=== PATIENT | male | born 1965 | race Caucasian/White ===

== ENCOUNTER 2022-01-04 17:38 | Emergency (ER) | payer MEDICARE, SELFPAY ==
[2022-01-04 18:59] VITALS: BP 124/90; PULSE 57; RESP 18; TEMP 36.9; O2SAT 99; BMI 19.3
--- NOTE | 2022-01-04 19:04 | XR_ITS ---
PROCEDURE INFORMATION: Exam: XR Chest Exam date and time: 01/04/2022 7:05 PM Age: 56 years old Clinical indication: Pain; Other: Generalized; Additional info: Pain/fall TECHNIQUE: Imaging protocol: Radiologic exam of the chest. Views: 2 views. COMPARISON: No relevant prior studies available. FINDINGS: Lungs: No consolidation. Pleural spaces: No pneumothorax. Heart/Mediastinum: No cardiomegaly. Bones/joints: Severe scoliosis. No acute fracture. IMPRESSION: Chronic changes without acute process.
--- NOTE | 2022-01-04 19:04 | CT_ITS ---
PROCEDURE INFORMATION: Exam: CT Thoracic Spine Without Contrast Exam date and time: 01/04/2022 7:17 PM Age: 56 years old Clinical indication: Pain in thoracic spine; Additional info: Pain/fall TECHNIQUE: Imaging protocol: Computed tomography of the thoracic spine without contrast. Radiation optimization: All CT scans at this facility use at least one of these dose optimization techniques: automated exposure control; mA and/or kV adjustment per patient size (includes targeted exams where dose is matched to clinical indication); or iterative reconstruction. COMPARISON: CT CERVICAL SPINE WO CON 01/04/2022 7:15 PM FINDINGS: Bones/joints: Examination is limited by severe scoliosis. No definite acute fracture or dislocation. Soft tissues: Unremarkable. Vasculature: Calcified atherosclerosis. No aneurysm. Gallbladder and bile ducts: Status post cholecystectomy. Kidneys and ureters: Partially visualized complex appearing left renal lesion described on lumbar CT from same date. IMPRESSION: Severe scoliosis without definite acute osseous abnormality.
--- NOTE | 2022-01-04 19:04 | CT_ITS ---
PROCEDURE INFORMATION: Exam: CT Head Without Contrast Exam date and time: 01/04/2022 7:12 PM Age: 56 years old Clinical indication: Pain; Headache not specified; Additional info: Pain/fall TECHNIQUE: Imaging protocol: Computed tomography of the head without contrast. Radiation optimization: All CT scans at this facility use at least one of these dose optimization techniques: automated exposure control; mA and/or kV adjustment per patient size (includes targeted exams where dose is matched to clinical indication); or iterative reconstruction. COMPARISON: No relevant prior studies available. FINDINGS: Brain: White matter changes which are nonspecific but compatible with small vessel occlusive change. 5 mm hypodensity within the inferior left lentiform nucleus. No mass. No hemorrhage. Cerebral ventricles: No ventriculomegaly. Paranasal sinuses: No fluid levels. Mastoid air cells: Visualized mastoid air cells are well aerated. Bones/joints: No acute fracture. Soft tissues: No significant soft tissue abnormality. IMPRESSION: 1. White matter changes which are nonspecific but compatible with small vessel occlusive change. 2. 5 mm hypodensity within the inferior left lentiform nucleus compatible with a dilated perivascular space versus small lacunar infarction which is age indeterminate but potentially subacute to chronic.
--- NOTE | 2022-01-04 19:04 | CT_ITS ---
PROCEDURE INFORMATION: Exam: CT Cervical Spine Without Contrast Exam date and time: 01/04/2022 7:15 PM Age: 56 years old Clinical indication: Neck pain; Additional info: Pain/fall TECHNIQUE: Imaging protocol: Computed tomography of the cervical spine without contrast. Radiation optimization: All CT scans at this facility use at least one of these dose optimization techniques: automated exposure control; mA and/or kV adjustment per patient size (includes targeted exams where dose is matched to clinical indication); or iterative reconstruction. COMPARISON: CT HEAD/BRAIN WO CON 01/04/2022 7:12 PM FINDINGS: Bones/joints: Severe scoliosis with fusion of the vertebral bodies at C2-C3 and incomplete anterior and posterior arch fusion at several levels. Mild asymmetry of the dens in relation to the lateral masses of C1 which is likely positional. Advanced degenerative changes most prominent at C6-C7. Mild vertebral body height loss at C4 and C6 without associated soft tissue abnormality which is likely chronic. Lungs: Lung apices are normal. Vasculature: Calcified atherosclerosis. No aneurysm. Soft tissues: No soft tissue swelling. IMPRESSION: Chronic changes described above without definite acute findings. If there is ongoing concern, MRI is recommended for further evaluation.
--- NOTE | 2022-01-04 19:04 | CT_ITS ---
PROCEDURE INFORMATION: Exam: CT Lumbar Spine Without Contrast Exam date and time: 01/04/2022 7:21 PM Age: 56 years old Clinical indication: Low back pain; Additional info: Pain/fall TECHNIQUE: Imaging protocol: Computed tomography of the lumbar spine without contrast. Radiation optimization: All CT scans at this facility use at least one of these dose optimization techniques: automated exposure control; mA and/or kV adjustment per patient size (includes targeted exams where dose is matched to clinical indication); or iterative reconstruction. COMPARISON: CT THORACIC SPINE WO CON 01/04/2022 7:17 PM FINDINGS: Bones/joints: Examination is limted by patient positioning and severe scoliosis. Advanced multilevel degenerative changes. No definite acute fracture or dislocation. Kidneys and ureters: 15 mm left renal hypodensity with coarse calcification. Vasculature: Calcified atherosclerosis. No aneurysm. Soft tissues: Unremarkable. IMPRESSION: 1. Degenerative changes of the lumbosacral spine with severe scoliosis. 2. 15 mm left renal hypodensity with coarse calcification which is indeterminate. Consider nonemergent ultrasound for further evaluation if this is not been performed previously.
--- NOTE | 2022-01-04 19:20 | XR_ITS ---
PROCEDURE INFORMATION: Exam: XR Pelvis Exam date and time: 01/04/2022 7:22 PM Age: 56 years old Clinical indication: Pelvic pain; Additional info: Fall TECHNIQUE: Imaging protocol: Radiologic exam of the pelvis. Views: 1 or 2 view. COMPARISON: CT LUMBAR SPINE WO CON 01/04/2022 7:21 PM FINDINGS: Bones/joints: Severe scoliosis.. No acute fracture. Soft tissues: Unremarkable. IMPRESSION: No acute findings.
--- NOTE | 2022-01-04 20:02 | [facility].EDGENADL ---
Discharge Plan Disposition Patient Disposition: Home, Self-Care Chief Complaint: PAIN Referrals Follow up/Referrals: Franny Howell [Primary Care Provider] - See instructions Clinical Impressions Clinical Impression: Medication side effect, Fall, Back pain, Acute hip pain, Scoliosis Instructions Patient Instructions: DI for Acute Pain -- Adult Discharge ED Provider: Jose Boudreaux General Adult HPI <Jose Boudreaux MD - Last Filed: 01/04/22 20:09> General Chief complaint: PAIN Stated complaint: ao 12/29 Fell hit head Time Seen by Provider: 01/04/22 19:30 Mode of Arrival: Ambulatory Source of Information: Patient Limitations: No Limitations Description of Symptoms (Recalled from ER Triage Doc. by RN): c/o head tingling, right hip pain that shoots up his back into his neck after a fall on , hitting his head on the floor, possibly the History of Present Illness HPI narrative: Patient is a 56-year-old male with past medical history of hypertension and scoliosis who presents to the emergency department for evaluation of traumatic injuries sustained in a fall occurring last . This was preceded by patient being started on a new blood pressure medication. The week before. Patient arose from a seated position from a chair becoming unsteady falling forward with loss of consciousness. Patient regained consciousness and suffered another fall without loss of consciousness. Since then patient has been largely asymptomatic in terms of lightheadedness and has cut his blood pressure medication in half. He has an associated pain that shoots from his right hip up his back into his right lateral neck. Patient denies saddle anesthesia, urinary incontinence. Patient has been able to ambulate. He presents here mainly for his hip pain. No other acute complaints at this time. Related Data Allergies Allergy/AdvReac Type Severity Reaction Status Date / Time No Known Allergies Allergy Verified 01/04/22 19:04 PFS <Jose Boudreaux MD - Last Filed: 01/04/22 20:09> PFSH Social History (Updated 01/04/22 @ 20:09 by Jose Boudreaux MD) Smoking Status: Current every day smoker alcohol intake: never current occupational status: unemployed Travel in the last 8 weeks: None <Jose Boudreaux MD - Last Filed: 01/04/22 20:09> ROS Obtained: Yes All systems reviewed & no additional complaints except as documented Physical Exam <Jose Boudreaux MD - Last Filed: 01/04/22 20:09> General General appearance: alert and in no apparent distress Head Head exam: atraumatic and normocephalic Eye Eye exam: Present PERRL and EOMI ENT ENT exam: Present mucous membranes moist Neck Neck exam: Present normal inspection Chest Chest inspection: Present normal inspection and symmetric chest wall rise Respiratory Respiratory exam: Present normal lung sounds bilaterally; Absent respiratory distress Cardiovascular Cardiovascular exam: Present regular rate and normal rhythm Abdominal Exam Abdominal exam: Present soft; Absent tenderness Extremities Exam Extremities exam: Present normal inspection Back Exam Back exam: Present paraspinal tenderness (Cervical) and other (Curvilinear palpation of the spinous processes) Neurological Exam Neurological exam: Present alert, oriented X3, CN II-XII intact, normal gait and other (5 out of 5 strength bilateral upper and lower extremities); Absent motor sensory deficit Psychiatric Psychiatric exam: Present normal affect Skin Skin exam: Present warm and dry Medical Decision Making <Jose Boudreaux MD - Last Filed: 01/04/22 20:09> Rangel Inquiry Pt receiving controlled substance: No Vital Signs: 01/04/22 18:59 Temperature 98.4 F Temperature Source Oral Pulse Rate [Left Radial] 57 L Respiratory Rate 18 Blood Pressure [Right Arm] 124/90 Blood Pressure Mean [Right Arm] 101 Blood Pressure Source [Right Arm] Automatic Cuff Blood Pressure Position [Right Arm] Sitting 02 Sat
--- NOTE | 2022-01-04 20:23 | ECG_ITS ---
APPROVED REPORT Exam: Resting ECG HR:57 bpm ECG Measurements Heart Rate 57 AXES NC 151 P 72 QRSd 113 QRS 75 QT 449 T 64 QTc 444 Conclusion SINUS BRADYCARDIA WITH SINUS ARRHYTHMIA POSSIBLE LEFT ATRIAL ENLARGEMENT [-0.1mV P-WAVE IN V1/V2] MODERATE INTRAVENTRICULAR CONDUCTION DELAY [110+ ms QRS DURATION] BORDERLINE ECG UNCONFIRMED REPORT Electronically signed by : Terry Waters MD 01/05/2022 11:22:35
[2022-01-04 20:34] LABS: Basophils # 0.1 K/mm3 (0-0.2); Basophils % 1.4 % (0.1-2.0); Eosinophils # 0.2 K/mm3 (0.0-0.4); Eosinophils % 2.7 % (0.1-12.0); Hematocrit 47.1 % (42.0-52.0); Hemoglobin 15.1 g/dL (14.1-18.0); Lymphocytes # 2.6 K/mm3 (0.7-4.5); Mean Corpuscular Hemoglobin 30.9 pg (27.0-31.2); Mean Corpuscular Volume 96.3 fl (80-94); Mean Platelet Volume 8.2 fl (7.4-10.4); Monocytes # 0.5 K/mm3 (0.1-1.0); Monocytes % 6.1 % (1.7-9.3); Neutrophils # 4.4 K/mm3 (1.8-7.8); Neutrophils % 56.8 % (37.0-80.0); Platelet Count 282 K/mm3 (142-424); Red Blood Count 4.89 M/mm3 (4.60-6.20); Red Cell Distribution Width 13.2 % (11.5-17.5); White Blood Count 7.8 K/mm3 (4.8-10.8)
[2022-01-04 20:39] LABS: Alanine Aminotransferase 21 U/L (12-78); Albumin Level 4.6 g/dl (3.5-5.0); Albumin/Globulin Ratio 1.5 (1.1-1.8); Alkaline Phosphatase 106 U/L (38-126); Anion Gap 9.4 mEq/L (5-15); Aspartate Amino Transferase 35 U/L (17-59); Blood Urea Nitrogen 14 mg/dl (9-20); Calcium 9.4 mg/dl (8.4-10.2); Carbon Dioxide 37 mmol/L (22.0-30.0); Chloride 94 mmol/L (98-107); Creatinine Clearance Estimated 79 mL/min (50-200); Estimated Glomerular Filt Rate 100 ml/min (>60); GFR (African American) 121 ML/MIN (>60); Glucose 118 mg/dl (74-100); Potassium 3.4 mmoL/L (3.5-5.1); Sodium 137 mmol/L (136-145); Total Protein,Serum 7.6 g/dl (6.3-8.2)
[2022-01-04 20:43] LABS: Bilirubin,Total < 0.1 mg/dl (0.2-1.3)
[2022-01-04 21:17] VITALS: BP 113/85; PULSE 64; RESP 16; TEMP 36.7; O2SAT 99
== END 2022-01-04 21:19 | disposition home or self-care (01) ==
PROVIDERS: Emergency Provider Emergency Medicine; PCP Nurse Practitioner Family
DX: M54.9 Dorsalgia, unspecified (principal); M25.551 Pain in right hip; M41.9 Scoliosis, unspecified; R42 Dizziness and giddiness; T46.5X5A Adverse effect of other antihypertensive drugs, initial encounter; W19.XXXA Unspecified fall, initial encounter
CPT/HCPCS: 70450; 71046; 72125; 72128; 72131; 72170; 80053; 85025; 93005; 99285

== ENCOUNTER 2023-12-09 20:03 | Emergency (ER) | payer MEDICARE, SELFPAY ==
[2023-12-09 20:05] VITALS: BP 156/100; PULSE 63; RESP 20; TEMP 36.7; O2SAT 95; BMI 19.3
--- NOTE | 2023-12-09 20:25 | XR_ITS ---
PROCEDURE INFORMATION: Exam: XR Chest Exam date and time: 12/09/2023 8:54 PM Age: 58 years old Clinical indication: Pain; Chest pressure; Additional info: Chest pain TECHNIQUE: Imaging protocol: Radiologic exam of the chest. Views: 2 views. COMPARISON: CR XR CHEST 2V 01/04/2022 7:05 PM FINDINGS: Lungs: Normal. Pleural spaces: Unremarkable. No pleural effusion. No pneumothorax. Heart/Mediastinum: Normal. Vasculature: Atherosclerotic vascular disease. Bones/joints: Severe S-shaped scoliosis of the thoracic spine. Organs: Cholecystectomy clips in the right upper abdomen. IMPRESSION: No acute cardiopulmonary abnormality.
--- NOTE | 2023-12-09 20:25 | HMH.EDGENADL ---
Discharge Plan Disposition Chief Complaint: Recheck/Abnormal Lab/Rx Referrals Follow up/Referrals: Franny Howell [Primary Care Provider] - See instructions Activity Restrictions/Add. Instructions Additional Instructions/Restrictions: Please follow-up with your primary care provider. Please return to the emergency department if you develop any new or worsening symptoms or become concerned for your health. Clinical Impressions Clinical Impression: Chest pain, Hypokalemia Print Language Print Language: Upper Sorbian Discharge ED Provider: Jan Hernandez General Adult HPI <KEAGAN Galan - Last Filed: 12/09/23 22:17> General Chief complaint: Recheck/Abnormal Lab/Rx Stated complaint: 155/101 high blood pressure Time Seen by Provider: 12/09/23 20:25 Mode of Arrival: Ambulatory Source of Information: Patient Limitations: No Limitations Description of Symptoms (Recalled from ER Triage Doc. by RN): 58 M presents from home with c/o high blood pressure and anxiety. Patient reports he stopped taking his medications around 1 month ago because he was just tired of taking them. Patient started taking his medications today, but felt like his BP was high and took it which is why he came in this evening. NAD, no chest pain History of Present Illness HPI narrative: Patient presents initially with a chief complaint of high blood pressure. Patient states that he has been having chest pain for the last several days in the center of his chest but is not currently experiencing chest pain. He reports that he feels funny . Patient has a history of medication noncompliance due to not knowing when to take my medication . Patient reports no nausea vomiting diarrhea shortness of breath fever chills hemoptysis hematochezia melena. Related Data Allergies Allergy/AdvReac Type Severity Reaction Status Date / Time No Known Allergies Allergy Verified 01/04/22 19:04 PFSH <KEAGAN Galan - Last Filed: 12/09/23 22:17> PFS Disclaimer: The information contained in this section may have been updated after the patient was seen, as this information can be updated by other users. Social History (Updated 01/04/22 @ 20:09 by Jose Boudreaux MD) Smoking Status: Current every day smoker alcohol intake: never current occupational status: unemployed Travel in the last 8 weeks: None <KEAGAN Galan - Last Filed: 12/09/23 22:17> ROS Obtained: Yes Systems reviewed as appropriate & no additional complaints except as documented Physical Exam <KEAGAN Galan - Last Filed: 12/09/23 22:17> General General appearance: alert and in no apparent distress Head Head exam: atraumatic and normal inspection Eye Eye exam: Present normal appearance and EOMI ENT ENT exam: Present normal exam, normal oropharynx and mucous membranes moist Neck Neck exam: Present normal inspection, full ROM and lymphadenopathy Chest Chest inspection: Present normal inspection and symmetric chest wall rise; Absent tenderness Respiratory Respiratory exam: Present normal lung sounds bilaterally; Absent respiratory distress or wheezes Cardiovascular Cardiovascular exam: Present regular rate, normal rhythm and normal heart sounds Extremities Exam Extremities exam: Present normal inspection and full ROM Back Exam Back exam: Present normal inspection and full ROM Neurological Exam Neurological exam: Present alert and oriented X3 Skin Skin exam: Present warm, dry and normal color Medical Decision Making <KEAGAN Galan - Last Filed: 12/09/23 22:17> Medical Records Medical records reviewed: Yes I reviewed the patient's medical records. Rangel Inquiry Pt receiving controlled substance: No Vital Signs: 12/09/23 20:05 12/09/23 21:00 12/09/23 21:55 Temperature 98.1 F Temperature Source Oral Pulse Rate 60 52 L Pulse Rate [Left] 63 Respiratory Rate 20 19 17 Blood Pressure 142/100 H 163/97 H Blood Pressure [Right Arm] 156/100 H Blood Pressure Mean 114 122 Blood Pressure Mean [Right Arm] 118 Blood Pressure Source [Right Arm] Automatic Cuff Blood Pressure Position [Right Arm] Sitting 02 Sat by Pulse Oximetry 95 98 96 Oxygen Delivery Method Room Air 12/09/23 22:00 Temperature Temperature Source Pulse Rate 62 Pulse Rate [Left] Respiratory Rate 18 Blood Pressure 160/91 H Blood Pressure [Right Arm] Blood Pressure Mean 114 Blood Pressure Mean [Right Arm] Blood Pressure Source [Right Arm] Blood Pressure Position [Right Arm] 02 Sat by Pulse Oximetry 95 Oxygen Delivery Method Lab Data Lab results reviewed: Yes I reviewed the patient's lab results. Lab Results 12/09/23 20:47: WBC 8.1, RBC 4.93, Hgb 15.8, Hct 48.2, MCV 97.9 H, MCH 32.1 H, MCHC 32.8, RDW 13.5, Plt Count 245, MPV 8.6, Neut % (Auto) 69.0, Lymph % (Auto) 18.7, [place] % (Auto) 7.7, Eos % (Auto) 1.8, Baso % (Auto) 2.7 H, Neut # (Auto) 5.6, Lymph # (Auto) 1.5, [place] # (Auto) 0.6, Eos # (Auto) 0.2, Baso # (Auto) 0.2, PT 10.6, INR 0.94, D-Dimer 0.42, Sodium 137, Potassium 3.2 L, Chloride 98, Carbon Dioxide 32 H, Anion Gap 10.2, BUN 12, Creatinine 1.00, Estimated Creat Clear 62, Estimated GFR 77, Est GFR ( Amer) 93, Glucose 109 H, Calcium 9.1, Magnesium 2.0, Total Bilirubin 0.9, AST 35, ALT 20, Alkaline Phosphatase 108, Troponin I < 0.01, NT-Pro-B Natriuret Pep 182 H, Total Protein 8.4 H, Albumin 4.8, Globulin 3.6 H, Albumin/Globulin Ratio 1.3 12/09/23 23:50: Troponin I < 0.01 12/09/23 20:47 12/09/23 20:47 Orders (Tests/Meds): ED MEDICATIONS Discontinued Medications Generic Name Dose Route Start Last Admin Trade Name Joeq PRN Reason Stop Dose Admin Acetaminophen 1,000 mg 12/09/23 20:25 12/09/23 21:20 Acetaminophen 1,000mg/100ml Vial IV 12/09/23 20:26 1,000 mg ONCE ONE Administration Belladonna Alkaloids 60 ml 12/09/23 20:25 12/09/23 21:18 Belladonna Alkaloids 60 Ml Ml PO 12/09/23 20:26 60 ml ONCE ONE Administration Hydroxyzine Pamoate 50 mg 12/09/23 20:28 12/09/23 21:18 Hydroxyzine Pamoate 25mg Capsule PO 12/09/23 20:29 50 mg ONCE ONE Administration Lactated Ringer's 1,000 mls @ 999 mls/hr 12/09/23 20:25 12/09/23 21:19 Lactated Ringer's 1000 Ml Bag IV 12/09/23 21:25 999 mls/hr .Q1H1M ONE Administration Ketorolac Tromethamine 15 mg 12/09/23 20:25 12/09/23 21:19 Ketorolac 30mg/Ml Vial IV 12/09/23 20:26 15 mg ONCE ONE Administration Prochlorperazine Edisylate 10 mg 12/09/23 20:25 12/09/23 21:19 Prochlorperazine 10mg/2ml Vial IV 12/09/23 20:26 10 mg ONCE ONE Administration ORDERS Category Date Time Status Chest XR 2 view (NOT portable) [XR chest 2V] Stat Exams 12/09/23 20:25 Completed BNP [NT Pro Brain Natriuretic Pep.] Stat Lab 12/09/23 20:47 Completed CBC w/Auto Diff [Complete Blood Count Auto Diff] Stat Lab 12/09/23 20:47 Completed CMP [Comprehensive Metabolic Panel] Stat Lab 12/09/23 20:47 Completed D-Dimer Stat Lab 12/09/23 20:47 Completed INR [Prothrombin Time INR] Stat Lab 12/09/23 20:47 Completed Magnesium Stat Lab 12/09/23 20:47 Completed Trop I [Troponin I] Stat Lab 12/09/23 20:47 Completed Troponin I Q3H Lab 12/09/23 23:50 Completed Troponin I Q3H Lab 12/10/23 02:30 Ordered HEART Score History (anamnesis): Slightly suspicious ECG: Normal Age: 45-65 years Risk factors: 1-2 risk factors Troponin: </= normal limit HEART Score: 2 Medical Decision Narrative: In summary patient is a 58-year-old male who presents to the emergency department for evaluation of chest pain and high blood pressure. Patient is presenting with a blood pressure 156/100 heart rate of 63 respiratory rate of 20 O2 sat of 95% on room air upon arrival, and afebrile. Physical exam is remarkable for significant scoliosis but no reproducible chest pain on palpation, normal heart sounds normal breath sounds. Differential diagnosis includes ACS versus musculoskeletal pain versus anxiety etc. Initial workup will be conducted with twelve-lead EKG plain film chest x-ray hematologic labs. Initial interventions include Tylenol Toradol GI cocktail Vistaril. The patient was placed in observation status at 2215. Medical necessity for observational status is serial troponins. The patient was provided serial reevaluations continuous cardiac monitoring and pulse oximetry while awaiting results. Patient was handed off to Dr. Hernandez at 2300 hrs. <Jose Boudreaux MD - Last Filed: 12/10/23 00:15> Vital Signs: 12/09/23 20:05 12/09/23 21:00 12/09/23 21:55 Temperature 98.1 F Temperature Source Oral Pulse Rate 60 52 L Pulse Rate [Left] 63 Respiratory Rate 20 19 17 Blood Pressure 142/100 H 163/97 H Blood Pressure [Right Arm] 156/100 H Blood Pressure Mean 114 122 Blood Pressure Mean [Right Arm] 118 Blood Pressure Source [Right Arm] Automatic Cuff Blood Pressure Position [Right Arm] Sitting 02 Sat by Pulse Oximetry 95 98 96 Oxygen Delivery Method Room Air 12/09/23 22:00 Temperature Temperature Source Pulse Rate 62 Pulse Rate [Left] Respiratory Rate 18 Blood Pressure 160/91 H Blood Pressure [Right Arm] Blood Pressure Mean 114 Blood Pressure Mean [Right Arm] Blood Pressure Source [Right Arm] Blood Pressure Position [Right Arm] 02 Sat by Pulse Oximetry 95 Oxygen Delivery Method Lab Data Lab Results 12/09/23 20:47: WBC 8.1, RBC 4.93, Hgb 15.8, Hct 48.2, MCV 97.9 H, MCH 32.1 H, MCHC 32.8, RDW 13.5, Plt Count 245, MPV 8.6, Neut % (Auto) 69.0, Lymph % (Auto) 18.7, [place] % (Auto) 7.7, Eos % (Auto) 1.8, Baso % (Auto) 2.7 H, Neut # (Auto) 5.6, Lymph # (Auto) 1.5, [place] # (Auto) 0.6, Eos # (Auto) 0.2, Baso # (Auto) 0.2, PT 10.6, INR 0.94, D-Dimer 0.42, Sodium 137, Potassium 3.2 L, Chloride 98, Carbon Dioxide 32 H, Anion Gap 10.2, BUN 12, Creatinine 1.00, Estimated Creat Clear 62, Estimated GFR 77, Est GFR ( Amer) 93, Glucose 109 H, Calcium 9.1, Magnesium 2.0, Total Bilirubin 0.9, AST 35, ALT 20, Alkaline Phosphatase 108, Troponin I < 0.01, NT-Pro-B Natriuret Pep 182 H, Total Protein 8.4 H, Albumin 4.8, Globulin 3.6 H, Albumin/Globulin Ratio 1.3 12/09/23 23:50: Troponin I < 0.01 Orders (Tests/Meds): ED MEDICATIONS Discontinued Medications Generic Name Dose Route Start Last Admin Trade Name Jerzy PRN Reason Stop Dose Admin Acetaminophen 1,000 mg 12/09/23 20:25 12/09/23 21:20 Acetaminophen 1,000mg/100ml Vial IV 12/09/23 20:26 1,000 mg ONCE ONE Administration Belladonna Alkaloids 60 ml 12/09/23 20:25 12/09/23 21:18 Belladonna Alkaloids 60 Ml Ml PO 12/09/23 20:26 60 ml ONCE ONE Administration Hydroxyzine Pamoate 50 mg 12/09/23 20:28 12/09/23 21:18 Hydroxyzine Pamoate 25mg Capsule PO 12/09/23 20:29 50 mg ONCE ONE Administration Lactated Ringer's 1,000 mls @ 999 mls/hr 12/09/23 20:25 12/09/23 21:19 Lactated Ringer's 1000 Ml Bag IV 12/09/23 21:25 999 mls/hr .Q1H1M ONE Administration Ketorolac Tromethamine 15 mg 12/09/23 20:25 12/09/23 21:19 Ketorolac 30mg/Ml Vial IV 12/09/23 20:26 15 mg ONCE ONE Administration Prochlorperazine Edisylate 10 mg 12/09/23 20:25 12/09/23 21:19 Prochlorperazine 10mg/2ml Vial IV 12/09/23 20:26 10 mg ONCE ONE Administration ORDERS Category Date Time Status Chest XR 2 view (NOT portable) [XR chest 2V] Stat Exams 12/09/23 20:25 Completed BNP [NT Pro Brain Natriuretic Pep.] Stat Lab 12/09/23 20:47 Completed CBC w/Auto Diff [Complete Blood Count Auto Diff] Stat Lab 12/09/23 20:47 Completed CMP [Comprehensive Metabolic Panel] Stat Lab 12/09/23 20:47 Completed D-Dimer Stat Lab 12/09/23 20:47 Completed INR [Prothrombin Time INR] Stat Lab 12/09/23 20:47 Completed Magnesium Stat Lab 12/09/23 20:47 Completed Trop I [Troponin I] Stat Lab 12/09/23 20:47 Completed Troponin I Q3H Lab 12/09/23 23:50 Completed Troponin I Q3H Lab 12/10/23 02:30 Ordered ECG Data Tracing #1: Independently inter by me rate is 58, rhythm is regular, axis is normal, no ST elevation in anatomical contiguous leads, QTc 420 HEART Score HEART Score: 2 Medical Decision Narrative: In summary patient is a 58-year-old male who presents to the emergency department for evaluation of chest pain and high blood pressure. Patient is presenting with a blood pressure 156/100 heart rate of 63 respiratory rate of 20 O2 sat of 95% on room air upon arrival, and afebrile. Physical exam is remarkable for significant scoliosis but no reproducible chest pain on palpation, normal heart sounds normal breath sounds. Differential diagnosis includes ACS versus musculoskeletal pain versus anxiety etc. Initial workup will be conducted with twelve-lead EKG plain film chest x-ray hematologic labs. Initial interventions include Tylenol Toradol GI cocktail Vistaril. The patient was placed in observation status at 2215. Medical necessity for observational status is serial troponins. The patient was provided serial reevaluations continuous cardiac monitoring and pulse oximetry while awaiting results. Patient was handed off to Dr. Hernandez at 2300 hrs. I was consulted by the JERICA, and we discussed the complexity of the problems being addressed. I approved the treatment and management plan for this patient's care in the emergency department, thus performing a substantive portion of the medical decision making. Jose Boudreaux MD <Jan Hernandez MD - Last Filed: 12/10/23 00:53> Vital Signs: 12/09/23 20:05 12/09/23 21:00 12/09/23 21:55 Temperature 98.1 F Temperature Source Oral Pulse Rate 60 52 L Pulse Rate [Left] 63 Respiratory Rate 20 19 17 Blood Pressure 142/100 H 163/97 H Blood Pressure [Right Arm] 156/100 H Blood Pressure Mean 114 122 Blood Pressure Mean [Right Arm] 118 Blood Pressure Source [Right Arm] Automatic Cuff Blood Pressure Position [Right Arm] Sitting 02 Sat by Pulse Oximetry 95 98 96 Oxygen Delivery Method Room Air 12/09/23 22:00 Temperature Temperature Source Pulse Rate 62 Pulse Rate [Left] Respiratory Rate 18 Blood Pressure 160/91 H Blood Pressure [Right Arm] Blood Pressure Mean 114 Blood Pressure Mean [Right Arm] Blood Pressure Source [Right Arm] Blood Pressure Position [Right Arm] 02 Sat by Pulse Oximetry 95 Oxygen Delivery Method Lab Data Lab Results 12/09/23 20:47: WBC 8.1, RBC 4.93, Hgb 15.8, Hct 48.2, MCV 97.9 H, MCH 32.1 H, MCHC 32.8, RDW 13.5, Plt Count 245, MPV 8.6, Neut % (Auto) 69.0, Lymph % (Auto) 18.7, [place] % (Auto) 7.7, Eos % (Auto) 1.8, Baso % (Auto) 2.7 H, Neut # (Auto) 5.6, Lymph # (Auto) 1.5, [place] # (Auto) 0.6, Eos # (Auto) 0.2, Baso # (Auto) 0.2, PT 10.6, INR 0.94, D-Dimer 0.42, Sodium 137, Potassium 3.2 L, Chloride 98, Carbon Dioxide 32 H, Anion Gap 10.2, BUN 12, Creatinine 1.00, Estimated Creat Clear 62, Estimated GFR 77, Est GFR ( Amer) 93, Glucose 109 H, Calcium 9.1, Magnesium 2.0, Total Bilirubin 0.9, AST 35, ALT 20, Alkaline Phosphatase 108, Troponin I < 0.01, NT-Pro-B Natriuret Pep 182 H, Total Protein 8.4 H, Albumin 4.8, Globulin 3.6 H, Albumin/Globulin Ratio 1.3 12/09/23 23:50: Troponin I < 0.01 Orders (Tests/Meds): ED MEDICATIONS Discontinued Medications Generic Name Dose Route Start Last Admin Trade Name Jerzy PRN Reason Stop Dose Admin Acetaminophen 1,000 mg 12/09/23 20:25 12/09/23 21:20 Acetaminophen 1,000mg/100ml Vial IV 12/09/23 20:26 1,000 mg ONCE ONE Administration Belladonna Alkaloids 60 ml 12/09/23 20:25 12/09/23 21:18 Belladonna Alkaloids 60 Ml Ml PO 12/09/23 20:26 60 ml ONCE ONE Administration Hydroxyzine Pamoate 50 mg 12/09/23 20:28 12/09/23 21:18 Hydroxyzine Pamoate 25mg Capsule PO 12/09/23 20:29 50 mg ONCE ONE Administration Lactated Ringer's 1,000 mls @ 999 mls/hr 12/09/23 20:25 12/09/23 21:19 Lactated Ringer's 1000 Ml Bag IV 12/09/23 21:25 999 mls/hr .Q1H1M ONE Administration Ketorolac Tromethamine 15 mg 12/09/23 20:25 12/09/23 21:19 Ketorolac 30mg/Ml Vial IV 12/09/23 20:26 15 mg ONCE ONE Administration Prochlorperazine Edisylate 10 mg 12/09/23 20:25 12/09/23 21:19 Prochlorperazine 10mg/2ml Vial IV 12/09/23 20:26 10 mg ONCE ONE Administration ORDERS Category Date Time Status Chest XR 2 view (NOT portable) [XR chest 2V] Stat Exams 12/09/23 20:25 Completed BNP [NT Pro Brain Natriuretic Pep.] Stat Lab 12/09/23 20:47 Completed CBC w/Auto Diff [Complete Blood Count Auto Diff] Stat Lab 12/09/23 20:47 Completed CMP [Comprehensive Metabolic Panel] Stat Lab 12/09/23 20:47 Completed D-Dimer Stat Lab 12/09/23 20:47 Completed INR [Prothrombin Time INR] Stat Lab 12/09/23 20:47 Completed Magnesium Stat Lab 12/09/23 20:47 Completed Trop I [Troponin I] Stat Lab 12/09/23 20:47 Completed Troponin I Q3H Lab 12/09/23 23:50 Completed Troponin I Q3H Lab 12/10/23 02:30 Ordered HEART Score HEART Score: 2 Medical Decision Narrative: In summary patient is a 58-year-old male who presents to the emergency department for evaluation of chest pain and high blood pressure. Patient is presenting with a blood pressure 156/100 heart rate of 63 respiratory rate of 20 O2 sat of 95% on room air upon arrival, and afebrile. Physical exam is remarkable for significant scoliosis but no reproducible chest pain on palpation, normal heart sounds normal breath sounds. Differential diagnosis includes ACS versus musculoskeletal pain versus anxiety etc. Initial workup will be conducted with twelve-lead EKG plain film chest x-ray hematologic labs. Initial interventions include Tylenol Toradol GI cocktail Vistaril. The patient was placed in observation status at 2215. Medical necessity for observational status is serial troponins. The patient was provided serial reevaluations continuous cardiac monitoring and pulse oximetry while awaiting results. Patient was handed off to Dr. Hernandez at 2300 hrs. I was consulted by the JERICA, and we discussed the complexity of the problems being addressed. I approved the treatment and management plan for this patient's care in the emergency department, thus performing a substantive portion of the medical decision making. MD David Lopes MD: I assumed care of the patient at the time of handoff from the prior provider. On reassessment patient reports symptomatic improvement. Repeat troponin returned undetectably low. Low concern for emergent pathology at this time. Given this, patient appropriate for discharge and outpatient management. And rec discussion was had with patient regarding discharge, less than 30 minutes were utilized preparing for discharge. Return precautions given. Critical Care <KEAGAN Galan - Last Filed: 12/09/23 22:17> Critical Care Time Critical Care Time: No
--- NOTE | 2023-12-09 20:30 | ECG_ITS ---
APPROVED REPORT Exam: Resting ECG HR:58 bpm ECG Measurements Heart Rate 58 AXES ND 144 P 69 QRSd 102 QRS 68 QT 424 T 74 QTc 420 Conclusion SINUS BRADYCARDIA INCOMPLETE RIGHT BUNDLE BRANCH BLOCK [90+ ms QRS DURATION, TERMINAL R IN V1/V2, 40+ ms S IN I/aVL/V4/V5/V6] BORDERLINE ECG Electronically signed by : MARCO ANTONIO CONRAD, 12/10/2023 00:25:17
[2023-12-09 21:00] VITALS: BP 142/100; PULSE 60; RESP 19; O2SAT 98
[2023-12-09 21:02] LABS: Basophils # 0.2 K/mm3 (0-0.2); Basophils % 2.7 % (0.1-2.0); Eosinophils # 0.2 K/mm3 (0.0-0.4); Eosinophils % 1.8 % (0.1-12.0); Hematocrit 48.2 % (42.0-52.0); Hemoglobin 15.8 g/dL (14.1-18.0); Lymphocytes # 1.5 K/mm3 (0.7-4.5); Lymphocytes % 18.7 % (10-50); Mean Corpuscular HGB Conc 32.8 g/dL (31.8-35.4); Mean Corpuscular Hemoglobin 32.1 pg (27.0-31.2); Mean Corpuscular Volume 97.9 fl (80-94); Mean Platelet Volume 8.6 fl (7.4-10.4); Monocytes # 0.6 K/mm3 (0.1-1.0); Monocytes % 7.7 % (1.7-9.3); Neutrophils # 5.6 K/mm3 (1.8-7.8); Platelet Count 245 K/mm3 (142-424); Red Blood Count 4.93 M/mm3 (4.60-6.20); Red Cell Distribution Width 13.5 % (11.5-17.5); White Blood Count 8.1 K/mm3 (4.8-10.8)
[2023-12-09 21:04] LABS: Albumin Level 4.8 g/dl (3.5-5.0); Chloride 98 mmol/L (98-107); Sodium 137 mmol/L (136-145)
[2023-12-09 21:05] LABS: Potassium 3.2 mmoL/L (3.5-5.1)
[2023-12-09 21:07] LABS: Alanine Aminotransferase 20 U/L (12-78); Anion Gap 10.2 mEq/L (5-15); Aspartate Amino Transferase 35 U/L (17-59); Blood Urea Nitrogen 12 mg/dl (9-20); Carbon Dioxide 32 mmol/L (22.0-30.0); Creatinine Clearance Estimated 62 mL/min (50-200); Estimated Glomerular Filt Rate 77 ml/min (>60); GFR (African American) 93 ML/MIN (>60)
[2023-12-09 21:08] LABS: Albumin/Globulin Ratio 1.3 (1.1-1.8); Alkaline Phosphatase 108 U/L (38-126); Bilirubin,Total 0.9 mg/dl (0.2-1.3); Calcium 9.1 mg/dl (8.4-10.2); Globulin 3.6 g/dL (1.3-3.2); Glucose 109 mg/dl (74-100); INR 0.94 (0.9-1.1); Prothrombin Time 10.6 seconds (10.1-12.5); Total Protein,Serum 8.4 g/dl (6.3-8.2)
[2023-12-09 21:17] LABS: D-Dimer 0.42 ug/mL (0.0-0.5); NT Pro Brain Natriuretic Pep. 182 pg/mL (0-125)
[2023-12-09] MEDS: hydrOXYzine pamoate 25MG CAPSULE 50 MG PO (21:18)
[2023-12-09] MEDS: BELLADONNA ALKALOIDS 60 ML ML PO (21:18)
[2023-12-09] MEDS: KETOROLAC 30MG/ML VIAL 15 MG IV (21:19)
[2023-12-09] MEDS: LACTATED RINGERS 1000ML 1,000 ML 999 ML IV (21:19)
[2023-12-09] MEDS: PROCHLORPERAZINE 10MG/2ML VIAL 10 MG IV (21:19)
[2023-12-09 21:20] LABS: Troponin I < 0.01 ng/ml (0.00-0.034)
[2023-12-09] MEDS: ACETAMINOPHEN 1,000MG/100ML VIAL 1000 MG IV (21:20)
[2023-12-09 21:55] VITALS: BP 163/97; PULSE 52; RESP 17; O2SAT 96
[2023-12-09 22:00] VITALS: BP 160/91; PULSE 62; RESP 18; O2SAT 95
--- NOTE | 2023-12-09 22:20 | PC.NURSE ---
rounded on patient, family at bedside, patient given blankets
[2023-12-10 00:35] LABS: Troponin I < 0.01 ng/ml (0.00-0.034)
[2023-12-10 00:54] VITALS: BP 130/87; PULSE 79; RESP 23; TEMP 36.9; O2SAT 95
== END 2023-12-10 00:56 | disposition home or self-care (01) ==
PROVIDERS: Physician Assistant; Emergency Provider Emergency Medicine; PCP Nurse Practitioner Family
DX: R07.9 Chest pain, unspecified (principal); E87.6 Hypokalemia; F17.210 Nicotine dependence, cigarettes, uncomplicated; I10 Essential (primary) hypertension
CPT/HCPCS: 71046; 80053; 83735; 83880; 84484; 85025; 85378; 85610; 93005; 96361; 96374; 96375; 99284; J0131; J0780; J1885; J7120